=== PATIENT | male | born 1965 | race Caucasian/White ===

== ENCOUNTER 2020-08-23 07:07 | Outpatient (REF) | payer OTHER, SELFPAY ==
[2020-08-23 07:54] LABS: Hematocrit 42.6 % (42-52); Hemoglobin 14.5 g/dl (14.0-18.0); Mean Corpuscular Hemoglobin 32.7 pg (27.0-33.0); Mean Corpuscular Volume 95.9 fL (80-98); Mean Platelet Volume 9.6 fL (9.4-12.4); Platelet Count 339 X10*3/uL (160-400); Red Blood Count 4.44 X10*6/uL (4.60-5.80); White Blood Count 7.7 X10*3/uL (4.8-10.8)
[2020-08-23 08:21] LABS: Alanine Aminotransferase 25 U/L (0-40); Albumin Level 4.5 g/dL (3.5-5.0); Alkaline Phosphatase 50 U/L (39-117); Anion Gap 10 (12-20); Aspartate Amino Transferase 20 U/L (5-37); Bilirubin Total 0.8 mg/dL (0.0-1.0); Blood Urea Nitrogen 10 mg/dL (9-16); Calcium 9.4 mg/dL (8.4-10.2); Carbon Dioxide 29 mmol/L (22-29); Chloride 100 mmol/L (96-108); Cholesterol 190 mg/dL; Estimated Glomerular Filt Rate > 60; Glucose Random 101 mg/dL (60-115); HDL Cholesterol 77 mg/dL; LDL Cholesterol Calculated 102 mg/dl; Potassium 4.3 mmol/l (3.3-5.1); Sodium 135 mmol/L (135-145); Total Protein 7.1 g/dL (6.5-8.0); Triglycerides 55 mg/dL
[2020-08-23 08:44] LABS: Prostate Specific Antigen 0.73 ng/mL (<0.05-4.0)
[2020-08-23 09:25] LABS: Free T4 (Free Thyroxine) 1.03 ng/dL (0.71-1.85)
== END 2020-08-23 07:08 | disposition home or self-care (01) ==
LOC: HO.LAB 07:07
PROVIDERS: Visit Provider Internal Medicine
DX: Z00.01 Encounter for general adult medical examination with abnormal findings (principal); Z12.5 Encounter for screening for malignant neoplasm of prostate; I10 Essential (primary) hypertension; E87.2 Acidosis; M53.83 Other specified dorsopathies, cervicothoracic region
CPT/HCPCS: 36415; 80053; 80061; 82550; 84153; 84439; 84443; 85027

== ENCOUNTER 2020-09-12 07:44 | Outpatient (REF) | payer OTHER, SELFPAY ==
[2020-09-12 09:11] LABS: COVID-19 Test Negative (Negative)
== END 2020-09-12 07:45 | disposition home or self-care (01) ==
LOC: HO.EMPCOV 07:44
PROVIDERS: Visit Provider Internal Medicine
DX: Z20.828 Contact with and (suspected) exposure to other viral communicable diseases (principal)
CPT/HCPCS: 87635; C9803

== ENCOUNTER → 2020-12-05 13:23 | Outpatient (BNVA) | payer OTHER, SELFPAY | PROVIDERS: Visit Provider Internal Medicine | DX: Z13.89 Encounter for screening for other disorder (principal) | CPT/HCPCS: 99201 ==

== ENCOUNTER 2021-08-31 06:28 | Outpatient (REF) | payer OTHER, SELFPAY ==
[2021-08-31 06:35] LABS: MANUAL DIFF FLAG NO
[2021-08-31 07:44] LABS: Basophils Percent Auto 0.5 % (0-2); Eosinophils Absolute Auto 0.1 X10*3/uL (0.0-0.4); Eosinophils Percent Auto 0.8 % (0-4); Hematocrit 42.2 % (42.0-52.0); Hemoglobin 14.6 g/dl (14.0-18.0); Imm Gran Abs Auto 0.05 X10*3/uL (0.00-0.03); Imm Gran Pct Auto 0.6 % (0.0-0.4); Lymphocytes Absolute Auto 1.4 X10*3/uL (1.2-4.9); Lymphocytes Percent Auto 18.5 % (20-40); Mean Corpuscular HGB Conc 34.6 g/dl (31.0-36.0); Mean Corpuscular Hemoglobin 32.7 pg (27.0-33.0); Mean Corpuscular Volume 94.4 fL (80.0-98.0); Mean Platelet Volume 9.6 fL (9.4-12.4); Monocytes Absolute Auto 0.7 X10*3/uL (0.1-1.2); Monocytes Percent Auto 8.7 % (2-11); Neutrophils Absolute Auto 5.5 x10*3/uL (2.0-8.3); Neutrophils Percent Auto 70.9 % (45-73); Platelet Count 324 X10*3/uL (160-400); Red Blood Count 4.47 X10*6/uL (4.60-5.80); Red Cell Distribution Width 12.1 % (11.0-16.0); White Blood Count 7.7 X10*3/uL (4.8-10.8)
[2021-08-31 08:04] LABS: Creatinine Urine 35.46 mg/dL; Microalbumin Urine < 5.0 mg/L
[2021-08-31 08:12] LABS: Alanine Aminotransferase 31 U/L (0-40); Albumin Level 4.5 g/dL (3.5-5.0); Alkaline Phosphatase 49 U/L (39-117); Anion Gap 13 (12-20); Aspartate Amino Transferase 23 U/L (5-37); Blood Urea Nitrogen 11 mg/dL (9-16); Calcium 9.5 mg/dL (8.4-10.2); Carbon Dioxide 25 mmol/L (22-29); Chloride 100 mmol/L (96-108); Cholesterol 204 mg/dL; Estimated Glomerular Filt Rate > 60; Glucose Random 98 mg/dL (60-115); HDL Cholesterol 69 mg/dL; LDL Cholesterol Calculated 120 mg/dl; Potassium 4.3 mmol/L (3.3-5.1); Sodium 134 mmol/L (135-145); Total Protein 7.2 g/dL (6.5-8.0); Triglycerides 78 mg/dL
[2021-08-31 08:49] LABS: Prostate Specific Antigen 2.09 ng/mL (<0.05-4.0)
== END 2021-08-31 06:29 | disposition home or self-care (01) ==
LOC: HO.LAB 06:28
PROVIDERS: PCP Internal Medicine; Visit Provider Internal Medicine
DX: Z00.00 Encounter for general adult medical examination without abnormal findings (principal); Z12.5 Encounter for screening for malignant neoplasm of prostate; I10 Essential (primary) hypertension; E78.5 Hyperlipidemia, unspecified
CPT/HCPCS: 36415; 80053; 80061; 82043; 84153; 85025

== ENCOUNTER 2022-05-04 10:12 | Outpatient (REF) | payer OTHER, SELFPAY ==
--- NOTE | ~2022-05-04 | XR_ITS ---
EXAMINATION: XR HAND, LEFT CLINICAL INFORMATION: Pain COMPARISON: None TECHNIQUE: Four views of the left hand. FINDINGS: Left hand: There is mild lateral subluxation of PIP joint fourth digit. There is mild soft tissue swelling. It needs to be used. Rest of the PIP and DIP joints of all digits are normal. The MCP and intercarpal and carpometacarpal joints normal as well. No acute fracture seen. XR/XR hand LT min 3V IMPRESSION: Lateral subluxation PIP joint fourth digit with mild soft tissue swelling. It needs to be reduced.
== END 2022-05-04 10:13 | disposition home or self-care (01) ==
LOC: HO.HOSX 10:12
PROVIDERS: Visit Provider Orthopaedic Surgery
DX: M18.12 Unilateral primary osteoarthritis of first carpometacarpal joint, left hand (principal); S63.275A Dislocation of unspecified interphalangeal joint of left ring finger, initial encounter
CPT/HCPCS: 20600; 73130; J1020

== ENCOUNTER 2022-05-29 11:00 | Outpatient (RCR) | payer OTHER, SELFPAY ==
--- NOTE | 2022-07-02 08:50 | MHC.OT.DC ---
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 Recommended pt to con't OT to dec jt effusion and digit locking progressing to an Oval 8 PIP hyperext block. Pt cx all scheduled appt Electronically Signed By: Cheri Yadav OT CHT CLT Reviewed/agree with student documentation: Therapist: Please Sign and return to therapist, thank you for your referral.
== END 2022-07-02 08:50 | disposition home or self-care (01) ==
LOC: HO.OT 11:00
PROVIDERS: PCP Internal Medicine; Visit Provider Orthopaedic Surgery
DX: S63.275A Dislocation of unspecified interphalangeal joint of left ring finger, initial encounter (principal)
CPT/HCPCS: 97110; 97165; 97760

== ENCOUNTER 2022-09-04 06:32 | Outpatient (REF) | payer OTHER, SELFPAY ==
[2022-09-04 06:42] LABS: MANUAL DIFF FLAG NO
[2022-09-04 07:28] LABS: Basophils Percent Auto 0.4 % (0-2); Eosinophils Absolute Auto 0.1 X10*3/uL (0.0-0.4); Eosinophils Percent Auto 1.3 % (0-4); Hematocrit 44.4 % (42.0-52.0); Hemoglobin 15.1 g/dl (14.0-18.0); Imm Gran Abs Auto 0.06 X10*3/uL (0.00-0.03); Imm Gran Pct Auto 0.9 % (0.0-0.4); Lymphocytes Absolute Auto 1.4 X10*3/uL (1.2-4.9); Lymphocytes Percent Auto 20.5 % (20-40); Mean Corpuscular Hemoglobin 32.5 pg (27.0-33.0); Mean Corpuscular Volume 95.5 fL (80.0-98.0); Monocytes Absolute Auto 0.6 X10*3/uL (0.1-1.2); Monocytes Percent Auto 8.1 % (2-11); Neutrophils Absolute Auto 4.8 x10*3/uL (2.0-8.3); Neutrophils Percent Auto 68.8 % (45-73); Platelet Count 323 X10*3/uL (160-400); Red Blood Count 4.65 X10*6/uL (4.60-5.80)
[2022-09-04 08:01] LABS: Creatinine Urine 77.38 mg/dL
[2022-09-04 08:22] LABS: Alanine Aminotransferase 26 U/L (0-40); Albumin Level 4.5 g/dL (3.5-5.0); Alkaline Phosphatase 49 U/L (39-117); Anion Gap 13 (12-20); Aspartate Amino Transferase 19 U/L (5-37); Bilirubin Total 0.6 mg/dL (0.0-1.0); Blood Urea Nitrogen 13 mg/dL (9-16); Calcium 9.6 mg/dL (8.4-10.2); Carbon Dioxide 25 mmol/L (22-29); Chloride 102 mmol/L (96-108); Cholesterol 203 mg/dL; Estimated Glomerular Filt Rate > 60; Glucose Random 110 mg/dL (60-115); HDL Cholesterol 64 mg/dL; LDL Cholesterol Calculated 118 mg/dl; Potassium 4.1 mmol/L (3.3-5.1); Prostate Specific Antigen 1.17 ng/mL (<0.05-4.0); Sodium 136 mmol/L (135-145); Total Protein 7.3 g/dL (6.5-8.0); Triglycerides 108 mg/dL
== END 2022-09-04 06:33 | disposition home or self-care (01) ==
LOC: HO.LAB 06:32
PROVIDERS: PCP Internal Medicine; Visit Provider Internal Medicine
DX: Z00.00 Encounter for general adult medical examination without abnormal findings (principal); Z12.5 Encounter for screening for malignant neoplasm of prostate; I10 Essential (primary) hypertension; E78.2 Mixed hyperlipidemia
CPT/HCPCS: 36415; 80053; 80061; 82043; 84153; 85025

== ENCOUNTER → 2022-10-24 11:25 | Outpatient (BNVA) | payer OTHER, SELFPAY | PROVIDERS: PCP Internal Medicine; Visit Provider Orthopaedic Surgery | DX: M18.12 Unilateral primary osteoarthritis of first carpometacarpal joint, left hand (principal); S63.275A Dislocation of unspecified interphalangeal joint of left ring finger, initial encounter | CPT/HCPCS: 20600; J1020 ==

== ENCOUNTER → 2023-01-23 10:39 | Outpatient (BNVA) | payer OTHER, SELFPAY | PROVIDERS: PCP Internal Medicine; Visit Provider Orthopaedic Surgery | DX: M18.12 Unilateral primary osteoarthritis of first carpometacarpal joint, left hand (principal); S63.27 Dislocation of unspecified interphalangeal joint of finger | CPT/HCPCS: 20600; J1020 ==

== ENCOUNTER 2023-02-25 11:41 | Outpatient (REF) | payer OTHER, SELFPAY ==
[2023-02-25 12:08] LABS: Hematocrit 43.3 % (42.0-52.0); Hemoglobin 15.4 g/dl (14.0-18.0); Mean Corpuscular HGB Conc 35.6 g/dl (31.0-36.0); Mean Corpuscular Hemoglobin 33.9 pg (27.0-33.0); Mean Corpuscular Volume 95.4 fL (80.0-98.0); Mean Platelet Volume 9.7 fL (9.4-12.4); Platelet Count 317 X10*3/uL (160-400); Red Blood Count 4.54 X10*6/uL (4.60-5.80); Red Cell Distribution Width 12.1 % (11.0-16.0); White Blood Count 9.2 X10*3/uL (4.8-10.8)
[2023-02-25 12:44] LABS: Alanine Aminotransferase 21 U/L (0-40); Albumin Level 4.6 g/dL (3.5-5.0); Alkaline Phosphatase 56 U/L (39-117); Anion Gap 14 (12-20); Aspartate Amino Transferase 16 U/L (5-37); Bilirubin Total 0.7 mg/dL (0.0-1.0); Blood Urea Nitrogen 9 mg/dL (9-16); Calcium 9.8 mg/dL (8.4-10.2); Carbon Dioxide 27 mmol/L (22-29); Chloride 98 mmol/L (96-108); Estimated Glomerular Filt Rate > 60; Glucose Random 175 mg/dL (60-115); Potassium 4.4 mmol/L (3.3-5.1); Sodium 135 mmol/L (135-145); Total Protein 7.4 g/dL (6.5-8.0)
[2023-02-25 12:54] LABS: TSH reflex Free T4 1.08 uIU/mL (0.32-4.0)
[2023-02-26 09:53] LABS: EBV-VCA IgM Ab <36.00 U/mL
[2023-02-26 12:08] LABS: Lyme Abs Screen <0.90 index
== END 2023-02-25 11:42 | disposition home or self-care (01) ==
LOC: HO.LAB 11:41
PROVIDERS: PCP Internal Medicine; Visit Provider Internal Medicine
DX: R53.83 Other fatigue (principal)
CPT/HCPCS: 36415; 80053; 84443; 85027; 86617; 86618; 86664; 86665

== ENCOUNTER 2023-06-11 12:26 | Outpatient (REF) | payer OTHER, SELFPAY ==
--- NOTE | ~2023-06-11 | FL_ITS ---
EXAMINATION: XR FLUOROSCOPY WITH IMAGES CLINICAL INFORMATION: Unilateral primary osteoarthritis of first carpometacarpal joint. COMPARISON: Radiographs of left hand from 05/04/2022 TECHNIQUE: Fluoroscopy Supervised by: Dr. Sheree Dove. Fluoroscopy Time: Information is not provided. Cumulative Dose: Information not provided. DAP: Information not provided. Images: 5 FL/FL guidance in treatment room FINDINGS AND IMPRESSION: Chronic severe osteoarthritis of the first carpometacarpal joint with chronic radial subluxation of the 1st metacarpal. No new abnormalities compared to 05/04/2022.
== END 2023-06-11 12:27 | disposition home or self-care (01) ==
LOC: HO.HOSX 12:26
PROVIDERS: PCP Internal Medicine; Visit Provider Orthopaedic Surgery
DX: Z13.89 Encounter for screening for other disorder (principal)

== ENCOUNTER 2023-06-11 12:26 | Outpatient (AMB) | payer OTHER, SELFPAY ==
--- NOTE | 2023-06-11 12:46 | A.OFFVIS_ITS ---
Intake Intake Visit Reasons: OV-s/p LT basal injection 10/24/22 Intake Note: Jeremias 57 yr old right hand dominant male presents today for his s/p LT basal injection 01/23/23. States injection is not helping and is aware he may not have another until June. Patient would like to discuss other treatment options. Also states his Left ring finger PIP joint instability has not done any home exercises. 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 His last injection was on 01/23/23, which he says gave him no relief. He is aware he is slightly early for a repeat injection and would like to discuss treatment options He complains of pain at the base of his thumb with activity, worse with pinching and gripping activities. He says he cannot sleep properly at night and this wakes him up. At this point he is interested in talking about operative intervention. He also complains of painful locking of his left ring finger as well. Again he has some mild hyper extension at the left ring finger PIP joint which then makes it hard for him to actively flex the PIP joint. He attended two sessions of OT hand therapy in the past. I again discussed the use of silver ring splints for him to wear, as he has good active flexion of the joint if the PIP joint is not allowed into hyper extension.. [facility] Medical History GERD (gastroesophageal reflux disease) High blood pressure High cholesterol Social History Current occupational status: employed Current occupation: storage room/maintenance/ rt hand Review of Systems Const All systems reviewed & are unremarkable except as noted in HPI and below Physical Exam Const General: no acute distress and alert Orientation/consciousness: patient oriented x3 Neuro General: patient oriented x3 Extrem Other: Evaluation of Left Upper Extremity: Neuro: Median, ulnar, radial nerves motor and sensory intact. No intrinsic or thenar wasting. Good finger cross. Vascular: Cap refill brisk. ROM: He can bring his fingers close to a fist and back into full extension. The only exception to this is the left ring finger. He appears to have a bit of a swan-neck deformity and has difficulty actively bring the PIP joint from a position of slight hyper extension into flexion. However, once the PIP joint is brought into slight flexion he is then able to actively bring the finger closed to a fist. Visible and palpable locking and catching of the ring finger Tender over the a1 chad of the ring finger I was able to palpate the nodule getting stuck beneath the a1 chad He also has a positive shoulder sign on the left and positive CMC grind. He is most tender to palpation about the basal joint of the thumb. Radiographs:? Multiple views of the left hand were taken under fluoroscopy today in clinic. They show left basal joint osteoarthritis with near complete loss of the joint space, subchondral?sclerosis and significant osteophyte formation. The scaphotrapezial joint and trapezial trapezoidal joint appear to be intact and in good condition. Hand radiographs from 05/04/2022 were also reviewed today. He also appears to have had an old dislocation of the left ring finger PIP joint which is still in a subluxated position with partial ulnar subluxation and deviation on the PA and oblique views.. Psych Appearance: grossly normal Affect: normal affect Attitude: cooperative Assessment & Plan Assessment & Plan (1) Arthritis of carpometacarpal (CMC) joint of left thumb: Code(s): M18.12 - Unilateral primary osteoarthritis of first carpometacarpal joint, left hand (2) Dislocation of interphalangeal joint of left ring finger: Code(s): S63.275A - Dislocation of unspecified interphalangeal joint of left ring finger, initial encounter (3) Trigger finger, left ring finger: Code(s): M65.342 - Trigger finger, left ring finger Plan Assessment and plan: 1. Left basal joint osteoarthritis, S/P injection Date of Injections: 01/23/23, 10/24/22, 05/04/22, with good relief. Most recent injection gave no relief With near complete loss of the joint space, subluxation and osteophyte formation He is evidently had numerous injections with an outside provider. 2. Left ring finger trigger finger I educated him about these conditions I discussed operative and non-operative treatment options The patient would like to proceed with surgery The risks and benefits of operative treatment were discussed with the patient and the patient wishes to proceed with surgery. These risks include, but are not limited to risk of damage to blood vessels, nerves, tendons, infection, recurrence, incomplete relief of preoperative symptoms, persistent pain, possible need for further surgery and the risks associated with regional blocks and anesthesia. The plan is to take the patient to the operating room sometime in the next few weeks for the following procedures: 1. Left basal joint arthroplasty LRTI with slip of APL tendon, under general 2. Left ring finger trigger release, under general All of the preoperative paperwork including the consent was filled out today. All the patient's questions were answered. The patient understands that they will be contacted by our cosmetics presser soon to schedule this procedure He denies Diabetes, blood thinners, asthma, heart, lung, kidney issues 3. 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 He will let me know if he wants to try this. He will continue to work on ROM exercises at home Scribed for Cynthia Dove MD by Mark Linda, medical assistant instructor, on 06/11/23 at 1:30 PM, EST. Orders: Orders FL guidance in treatment room Today M18.12 - Unilateral primary osteoarthritis of first carpometacarpal joint, left hand Coding Level of Care Code Est Pt Level 4 (32327) Diagnoses Arthritis of carpometacarpal (CMC) joint of left thumb M18.12 Dislocation of interphalangeal joint of left ring finger S63.275A Trigger finger, left ring finger M65.342
== END 2023-06-11 13:58 | disposition home or self-care (01) ==
PROVIDERS: PCP Internal Medicine; Visit Provider Orthopaedic Surgery
DX: M18.12 Unilateral primary osteoarthritis of first carpometacarpal joint, left hand (principal); S63.275A Dislocation of unspecified interphalangeal joint of left ring finger, initial encounter; M65.342 Trigger finger, left ring finger
CPT/HCPCS: 99214

== ENCOUNTER 2023-06-24 06:52 | Day surgery (SDC) | payer OTHER, SELFPAY ==
[2023-06-20 13:02] VITALS: BMI 25.1
--- NOTE | 2023-06-21 10:02 | HO.ANESPROP2 ---
Documented by User: Cora Ortiz NP 06/21/23 10:03 HPI - Anesthesia Eval Consult details Narrative: 57yo M for Left Basil Joint Arthroplasty ligament reconstruction tendon interposition w/slip of APL tendon, Left Ring Finger Trigger Release PMFSH Active Problems Active Problems: All Active Problems (Updated 06/11/23 @ 13:30 by Mark Linda) Trigger finger, left ring finger (Acute) Dislocation of interphalangeal joint of left ring finger (Acute) Arthritis of carpometacarpal (CMC) joint of left thumb (Acute) Past Medical History Medical History (Updated 06/11/23 @ 13:30 by Mark Linda) GERD (gastroesophageal reflux disease) High cholesterol High blood pressure Surgical History Surgical History (Updated 06/20/23 @ 13:01 by Lina Brar, NI) Hx of colonoscopy Hx of inguinal hernia repair S/P left knee arthroscopy Hx of appendectomy Social History Social History (Updated 06/20/23 @ 13:01 by Lina Brar, NI) Are you a primary career coordinator to a significant other at home: No Do you presently have visiting nurse or other home services: No Patient Tobacco Use Status: Never used Tobacco Current occupational status: employed Current occupation: storage room/maintenance/ rt hand Meds Allergies Allergy/AdvReac Type Severity Reaction Status Date / Time erythromycin base Allergy Severe Hives, rash Verified 06/20/23 13:02 Home Medications Medication Instructions Recorded Confirmed Last Taken Type amlodipine 10 mg-atorvastatin 20 1 tab PO DAILY 05/04/22 06/20/23 06/24/23 History mg tablet lisinopril 10 1 tab PO DAILY 05/04/22 06/20/23 Unknown History mg-hydrochlorothiazide 12.5 mg tablet omeprazole 20 mg capsule,delayed 20 mg PO DAILY 05/04/22 06/20/23 06/24/23 History release Exam Exam Date and Time: June 21, 2023 1002 Height,Weight and Vital Signs: Height 5 ft 7 in Weight 72.575 kg Pertinent Lab Results Pertinent Lab Results: Laboratory Tests 02/25/23 11:56 WBC 9.2 Hgb 15.4 Hct 43.3 Plt Count 317 Sodium 135 Potassium 4.4 Chloride 98 Carbon Dioxide 27 BUN 9 Creatinine 0.86 Assessment and Plan Assessment Anesthesia Assessment: Chart Reviewed Documented by User: Mustapha Anders MD 06/24/23 18:22 HPI - Anesthesia Eval Consult details Narrative: 57yo M for Left Basil Joint Arthroplasty ligament reconstruction tendon interposition w/slip of APL tendon, Left Ring Finger Trigger Release Denies any Chest pain , shortness of breath . functional status greater than 4 [facility]S [facility] Past Medical History Medical History (Updated 06/11/23 @ 13:30 by Mark Linda) GERD (gastroesophageal reflux disease) High cholesterol High blood pressure Functional capacity: independent ambulation Family History Family history of problems with anesthesia: No Surgical History Surgical History (Updated 06/20/23 @ 13:01 by Lina Brar RN) Hx of colonoscopy Hx of inguinal hernia repair S/P left knee arthroscopy Hx of appendectomy History of Problems with Anesthesia: No Social History Social History (Updated 06/20/23 @ 13:01 by Lina Brar RN) Are you a primary career coordinator to a significant other at home: No Do you presently have visiting nurse or other home services: No Patient Tobacco Use Status: Never used Tobacco Current occupational status: employed Current occupation: storage room/maintenance/ rt hand Meds Allergies Allergy/AdvReac Type Severity Reaction Status Date / Time erythromycin base Allergy Severe Hives, rash Verified 06/20/23 13:02 Home Medications Medication Instructions Recorded Confirmed Last Taken Type amlodipine 10 mg-atorvastatin 20 1 tab PO DAILY 05/04/22 06/20/23 06/24/23 History mg tablet lisinopril 10 1 tab PO DAILY 05/04/22 06/20/23 Unknown History mg-hydrochlorothiazide 12.5 mg tablet omeprazole 20 mg capsule,delayed 20 mg PO DAILY 05/04/22 06/20/23 06/24/23 History release Exam Airway Mallampati Class: III Loose/Missing/Broken Teeth: Yes Assessment and Plan Assessment Anesthesia Assessment: Anesthesia Plan Discussed Final Anesthetic Review Family History of Problems with Anesthesia: No History of Problems with Anesthesia: No NPO: Yes ASA Class: III Final Preanesthetic Review: Meds/Allgs Chart Reviewed, Consent Obtained/Reviewed and Anes Risks/Benef Reviewed Patient Risk: Intermediate Procedure Risk: Intermediate Anesthetic Plan Anesthetic Plan: GA, Regional Block and Agree w/ Assess. and Plan Disposition: Standard PACU
--- NOTE | ~2023-06-24 | FL_ITS ---
EXAMINATION: XR FLUOROSCOPY WITH IMAGES CLINICAL INFORMATION: Basal joint arthroplasty ligament reconstruction. Left basal joint arthroplasty. COMPARISON: None available. TECHNIQUE: Fluoroscopy Supervised By: Dr. Cynthia Dove. Fluoroscopy Time: 10.44 seconds. Cumulative Dose: 0.2743 mGy. DAP: 0.0166 Gycm2. Images: 6. FINDINGS: Fluoroscopy guidance provided for osteotomies and fusion of the left first SENIOR CARE joint. Final images 2 K wires or pins across the first SENIOR CARE joint. FL/FL guidance in OR IMPRESSION: Fluoroscopy guidance for osteotomy and fusion of the first SENIOR CARE joint.
[2023-06-24 07:08] VITALS: BP 136/74; PULSE 53; RESP 16; TEMP 36.9; O2SAT 98
[2023-06-24] MEDS: Lactated Ringers 1,000 ML 100 ML IVCONT (07:19)
--- NOTE | 2023-06-24 07:59 | P.OP_ITS ---
Operative Note Operative Note Date of Service: 06/24/23 Narrative: Operative Note Narrative: Preop diagnosis: 1. left basal joint osteoarthritis 2. Left ring finger trigger finger Postop diagnosis: Same Procedure: 1. left basal joint arthroplasty with irving trapezii ectomy and ligament reconstruction tendon interposition with a slip of APL tendon 2. Left ring finger trigger release Surgeon: Cynthia Dove MD Anesthesia: General Anesthesia plus regional block Findings: no locking or catching with passive range of motion of the left ring finger after A1 chad release. Left basal joint arthritis, and a significantly sized osteophyte measuring approximately 7 mm in diameter was removed. Implants: 0.045 K-wires x2 Tourniquet time: 51 minutes EBL: 5.0 ml Specimen: osteophyte, and bone from basal joint. Drains: None Complications: None Disposition: Brought to the recovery room in stable condition Plan: Follow-up in 10-14 days for wound check, suture removal and to postop radiographs Place into a short-arm thumb spica cast. Anticipate K-wire removal at 4 weeks postop with same-day appointment for OT hand therapy for a custom thermoplastic hand based thumb spica splint and hand therapy Indications: The patient is 57 years old with left basal joint osteoarthritis. The risks and benefits of operative treatment, including but not limited to risk of damage to blood vessels, nerves, tendons, infection, recurrence, persistent pain or numbness, incomplete resolution of preoperative symptoms, or need for further surgery were discussed with the patient and they wished to proceed with surgery. Procedure: Once consent was obtained patient was brought back to the operating suite and placed in the operating table in a supine position. A regional block was performed by the anesthesia team. Perioperative antibiotics and anesthesia were administered by the anesthesia team. A tourniquet was applied to the proximal aspect of the left upper extremity and the limb was prepped and draped in a standard surgical fashion. The limb was elevated exsanguinated with Esmarch bandage and the tourniquet inflated to 250 mm of mercury for a total tourniquet time of 51 minutes. A 1.5 cm oblique incision was made centered over the A1 chad of the left ring finger . The incision was made through the skin to the subcutaneous tissues using a #15 blade. Careful dissection was made down to the level of the A1 pu lley using tenotomy scissors, with care being taken to protect the nearby neurovascular structures. A longitudinal incision was made in the A1 chad 1st using a #15 blade, then using tenotomy scissors under direct visualization. The A1 chad was noted to be thickened. Following our A1 chad release, we no longer saw any locking or catching of the digit with flexion and extension. A 4 cm longitudinal incision was made over the dorsal aspect of the basal joint of the left thumb extending proximally over the 1st dorsal compartment. The incision was made through the skin to the subcutaneous tissues using a 15. Blade. I dissected down to the level of the abductor pollicis longus and extensor problems this brevis tendons with care being taken to protect the branches of the superficial radial nerve. The basal joint was entered through the interval between the APL and EPB tendons, and the base of the 1st metacarpal and the distal aspect of the trapezium were exposed. Two baby Julio retractors were placed around the base of the 1st metacarpal and a bone saw was used to make a transverse cut through the base of the 1st metacarpal removing sliver of bone. The distal aspect of the trapezium was then similarly mobilized, 2 baby Julio retractors placed, and the distal half of the trapezium removed after a transverse cut was made using a small bone saw and a rongeur. The FCR tendon was seen passing through the floor of the interval. At this point my attention was turned to the 1st dorsal compartment. It was exposed over the radial styloid. A slip of the abductor pollicis longus tendon was selected and cut proximally and withdrawn back to the interval and its attachment at the base of the 1st metacarpal. It was then secured to the base of the interval and the FCR tendon using some 3-0 Ethibond suture. An anchovy was then created from the remaining slip of APL tendon and placed into the interval. It was secured using 3-0 Ethibond suture material. Two 0.045 K-wires were then placed from distal to proximal across the interval maintaining the space in the interval. Once satisfied with their position on fluoroscopic images they were cut, bent and had pin caps applied. At this point the wound was again irrigated with normal saline. The interval was closed using 3-0 Ethibond and 4-0 Vicryl suture. The tourniquet was then deflated and hemostasis obtained with a brief period of local pressure and bipolar electrocautery. The wound was again copiously irrigated with normal saline. The subcutaneous layer was closed with 4-0 Vicryl suture, and the skin edges were reapproximated with 5-0 Prolene suture. The wound was infiltrated with some 1% lidocaine with epinephrine for postop pain control and a sterile dressing and thumb spica splint were applied. The patient appears to have tolerated the procedure well and with no complications. All digits were well vascularized at the conclusion of the case.
--- NOTE | 2023-06-24 10:14 | MHC.SHP ---
Pre-Procedural Eval Section A Date of Service: 06/24/23 The patient is an INPATIENT: No Changes since office visit: No Cold of Flu in the past 2 weeks, No New Medical Problems, No Changes in Medication and No Patient answered all questions The History & Physical has been completed within 30 days and I have reviewed it.: Yes Section B Chief Complaint: Unilateral primary osteoarthritis of first carpome Allergies: Allergies Allergy/AdvReac Type Severity Reaction Status Date / Time erythromycin base Allergy Severe Hives, rash Verified 06/20/23 13:02 Plan I have reviewed the history and physical and performed a pertinent physical examination on my patient. No changes have occurred unless specified. Time Spent With Patient Time: Total time managing care of this patient today ____ minutes.
[2023-06-24 12:24] VITALS: BP 138/84; PULSE 55; RESP 16; TEMP 36.4; O2SAT 98
[2023-06-24 12:29] VITALS: BP 140/84; PULSE 48; RESP 14; O2SAT 98
[2023-06-24 12:34] VITALS: BP 151/80; PULSE 70; RESP 16; O2SAT 98
[2023-06-24 12:39] VITALS: BP 138/83; PULSE 68; RESP 14; O2SAT 99
[2023-06-24 12:54] VITALS: BP 151/83; PULSE 52; RESP 16; TEMP 36.3; O2SAT 99
== END 2023-06-24 13:35 | disposition home or self-care (01) ==
PROVIDERS: PCP Internal Medicine; Visit Provider Orthopaedic Surgery
PROC: (CPT 25447; principal; 2023-06-24 08:40)
PROC: (CPT 26055; 2023-06-24 08:40)
DX: M18.12 Unilateral primary osteoarthritis of first carpometacarpal joint, left hand (principal); M65.342 Trigger finger, left ring finger; M79.645 Pain in left finger(s); I10 Essential (primary) hypertension; E78.00 Pure hypercholesterolemia, unspecified; Z88.1 Allergy status to other antibiotic agents
CPT/HCPCS: 25447; 26055; 88304; 88311; J0690; J1100; J2250; J2405; J2795; J3010

== ENCOUNTER → 2023-06-24 06:52 | Outpatient (BNV) | payer OTHER, SELFPAY | PROVIDERS: PCP Internal Medicine; Visit Provider Orthopaedic Surgery | DX: M65.342 Trigger finger, left ring finger (principal); M18.12 Unilateral primary osteoarthritis of first carpometacarpal joint, left hand | CPT/HCPCS: 25447; 26055 ==

== ENCOUNTER 2023-07-09 11:56 | Outpatient (REF) | payer OTHER, SELFPAY ==
--- NOTE | ~2023-07-09 | XR_ITS ---
EXAMINATION: XR HAND, LEFT CLINICAL INFORMATION: Hand pain COMPARISON: Hand radiographs 05/02/2022 TECHNIQUE: PA, lateral, and oblique views of the left hand. FINDINGS: There are postsurgical changes of the first carpometacarpal joint with percutaneous fixation pins fixating the first carpometacarpal joint. No acute fracture or dislocation. Persistent mild ulnar subluxation of the fourth middle phalanx and similar degenerative changes of the interphalangeal joints. Atherosclerotic vascular calcification. Similar punctate calcification in the TFCC cartilage. No acute fracture or dislocation. XR/XR hand LT min 3V IMPRESSION: 1. There are postsurgical changes of the first carpometacarpal joint with percutaneous fixation pins fixating the first carpometacarpal joint. 2. Persistent mild ulnar subluxation of the fourth middle phalanx and similar degenerative changes of the interphalangeal joints.
== END 2023-07-09 11:57 | disposition home or self-care (01) ==
LOC: HO.HOSX 11:56
PROVIDERS: Visit Provider Orthopaedic Surgery
DX: S63.27 Dislocation of unspecified interphalangeal joint of finger (principal); M18.12 Unilateral primary osteoarthritis of first carpometacarpal joint, left hand; M65.342 Trigger finger, left ring finger
CPT/HCPCS: 73130

== ENCOUNTER 2023-07-09 13:11 | Outpatient (AMB) | payer OTHER, SELFPAY ==
--- NOTE | 2023-07-09 12:00 | MHC.OFFVIS ---
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 States he feels like the pins are jabbing him and is uncomfortable. Xrays updated in office. 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 He says he feels like the pins are jabbing into his skin causing him pain He no longer has any locking or catching He says he is unable to take NSAIDs. He was taking them following surgery, but he says this morning he experienced rectal bleeding. He says he had a hemmorhoid removed in 2014 and when he takes NSAIDs since his surgery he begins to experience bleeding. He says he has a GI doctor that he will speak to about this [facility] Medical History (Updated 06/11/23 @ 13:30 by Mark Linda) GERD (gastroesophageal reflux disease) High cholesterol High blood pressure Surgical History (Updated 06/20/23 @ 13:01 by Lina Brar RN) Hx of colonoscopy Hx of inguinal hernia repair S/P left knee arthroscopy Hx of appendectomy Social History Are you a primary home care giver to a significant other at home: No Do you presently have visiting nurse or other home services: No Patient Tobacco Use Status: Never used Tobacco Current occupational status: employed Current occupation: storage room/maintenance/ rt hand Review of Systems Const All systems reviewed & are unremarkable except as noted in HPI and below Physical Exam Const General: no acute distress and alert Orientation/consciousness: patient oriented x3 Neuro General: patient oriented x3 Extrem Other: The patient was alert oriented and in no acute distress The incisions are healing well with no erythema drainage or evidence of infection. Sutures removed and Steri-Strips applied Pin sites are also clean and dry with no evidence of infection The more ulnar early position pin looks like it migrated in a little deeper. I withdrew that a few mm to a more satisfactory position. No locking or catching when the ring finger is brought into a tight flexion and then brought back into extension. It should be noted that he still having difficulty with active flexion at the PIP joint when the PIP joint is brought into some hyper extension. Again is possible that he may need a procedure to correct this. Sensation is intact Cap refill is brisk Radiographs: 3 views of the left hand, with attention to the thumb, were taken and viewed by me today in clinic. They show that he is status post a irving trapezii ectomy and basal joint arthroplasty, with satisfactory position of all implants and preservation of the basal joint inter space. Psych Appearance: grossly normal Affect: normal affect Attitude: cooperative Assessment & Plan Assessment & Plan (1) Arthritis of carpometacarpal (CMC) joint of left thumb: Code(s): M18.12 - Unilateral primary osteoarthritis of first carpometacarpal joint, left hand (2) Dislocation of interphalangeal joint of left ring finger: Code(s): S63.275A - Dislocation of unspecified interphalangeal joint of left ring finger, initial encounter (3) Trigger finger, left ring finger: Code(s): M65.342 - Trigger finger, left ring finger Plan Assessment and plan: 1. Left basal joint osteoarthritis, S/P BJA with hemitrapeziectomy and LRTI DOS: 06/24/23 2. Left ring finger trigger finger, S/P release DOS: 06/24/23 The patient appears to be doing well post-operatively I educated him about the post-operative course He no longer has any locking or catching I explained the signs and symptoms of infection, if the patient develops any new or worsening erythema, drainage, pain, or warmth they should contact the clinic or attend the ED. He was placed in a short arm cast to be worn for the next 2 weeks I discussed activity modifications, he is to lift nothing heavier than a cellphone for the next several weeks He will perform gentle ROM exercises at home He should avoid any underwater activities at this time I ordered a course of OT hand therapy for a custom splint, this should be scheduled for the same day following his K-wire removal Of note, he experienced some rectal bleeding while taking NSAIDs post-operatively. He has stop taking the ibuprofen. I also recommend he speak with his GI concerning this as he has a hx of hemorrhoid removal in 2015. He is in agreement. He will follow up in 2 weeks for K-wire removal He should have an appointment with OT hand therapy for the same day following this appointment for a custom thermoplastic hand based thumb spica splint and hand therapy 3. 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 He will let me know if he wants to try this. It is possible that he may benefit from an operative procedure securing a slip of FDS proximally to prevent the PIP joint from full extension. He will continue to work on ROM exercises at home Scribed for Cynthia Dove MD by Mark Linda, medical customer service representative, on 07/09/23 at 2:40 PM, EST. Orders: Orders XR hand LT min 3V Today M79.642 - Pain in left hand Coding Level of Care Code Global (85986) Diagnoses Arthritis of carpometacarpal (CMC) joint of left thumb M18.12 Dislocation of interphalangeal joint of left ring finger S63.275A Trigger finger, left ring finger M65.342
== END 2023-07-09 15:20 | disposition home or self-care (01) ==
PROVIDERS: PCP Internal Medicine; Visit Provider Orthopaedic Surgery
DX: M18.12 Unilateral primary osteoarthritis of first carpometacarpal joint, left hand (principal); S63.275A Dislocation of unspecified interphalangeal joint of left ring finger, initial encounter; M65.342 Trigger finger, left ring finger
CPT/HCPCS: 99024

== ENCOUNTER 2023-07-23 10:30 | Outpatient (AMB) | payer OTHER, SELFPAY ==
--- NOTE | 2023-07-23 10:48 | MHC.OFFVIS ---
Intake Intake Visit Reasons: Lt RF Trigger Release, Lt Basal Arthro 06/24/23 Intake Note: Jeremias 58 yr old right hand dominant male, presents today for his P/O visit for his left ring finger Trigger Release & Left Basal Arthroplasty from DOS 06/24/23. Dressing removed in office and xrays updated . Patient has O.T appointment scheduled for tomorrow due to no availability for today. Cast removed in office. 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 He says he feels like the pins are jabbing into his skin causing him pain and he is ready to have them out. He says the pins are making him feel nauseous He says his OT appointment is for tomorrow (07/24/23) due to no availability following his appointment today. He denies getting his cast wet, and denies any symptoms of infection. [facility] Medical History (Updated 07/09/23 @ 14:50 by Cynthia Dove MD) GERD (gastroesophageal reflux disease) High cholesterol High blood pressure Surgical History (Updated 06/20/23 @ 13:01 by Lina Brar RN) Hx of colonoscopy Hx of inguinal hernia repair S/P left knee arthroscopy Hx of appendectomy Social History Are you a primary customer care assistant to a significant other at home: No Do you presently have visiting nurse or other home services: No Patient Tobacco Use Status: Never used Tobacco Current occupational status: employed Current occupation: storage room/maintenance/ rt hand Physical Exam Const General: no acute distress and alert Orientation/consciousness: patient oriented x3 Neuro General: patient oriented x3 Extrem Other: The patient was alert oriented and in no acute distress The incisions are healing well with no erythema drainage or evidence of infection. The inside of his cast was actually somewhat wet near where the pin sites were. Thinks it might be from being sweaty. Pin sites are clean and with no evidence of infection The more radial pin was loose and came right out K-wires removed today in clinic, which he tolerated well but he felt mildly nauseous following the removal of his K-wires No locking or catching when the ring finger is brought into a tight flexion and then brought back into extension. It should be noted that he still having difficulty with active flexion at the PIP joint when the PIP joint is brought into some hyper extension. Again is possible that he may need a procedure to correct this. Sensation is intact Cap refill is brisk Psych Appearance: grossly normal Affect: normal affect Attitude: cooperative Assessment & Plan Assessment & Plan (1) Arthritis of carpometacarpal (CMC) joint of left thumb: Code(s): M18.12 - Unilateral primary osteoarthritis of first carpometacarpal joint, left hand (2) Dislocation of interphalangeal joint of left ring finger: Code(s): S63.275A - Dislocation of unspecified interphalangeal joint of left ring finger, initial encounter (3) Trigger finger, left ring finger: Code(s): M65.342 - Trigger finger, left ring finger Plan Assessment and plan: 1. Left basal joint osteoarthritis, S/P BJA with hemitrapeziectomy and LRTI DOS: 06/24/23 2. Left ring finger trigger finger, S/P release DOS: 06/24/23 K-wire removed: 07/23/23, he felt lightheaded following the K-wire removal today in clinic The patient appears to be doing well post-operatively I educated him about the post-operative course He no longer has any locking or catching I explained the signs and symptoms of infection, if the patient develops any new or worsening erythema, drainage, pain, or warmth they should contact the clinic or attend the ED. Out of an abundance of caution he was placed on a 7 day course of PO Augmentin, as his cast was damp when removed. He does not recall his splint getting wet. He was placed in a new splint today to wear until his OT appointment tomorrow I discussed activity modifications, he is to lift nothing heavier than a cellphone for the next 2 weeks He will perform gentle ROM exercises at home He should avoid any underwater activities for the next 5 days He has his OT appointment scheduled for 07/24/23, tomorrow, due to no availability for appointments today. They will fit him for a custom thermal-molded splint to wear, and to work on ROM exercises Of note, he experienced some rectal bleeding while taking NSAIDs post-operatively. He has stop taking the ibuprofen and has not had any rectal bleeding since that time.. I also recommend he speak with his GI concerning this as he has a hx of hemorrhoid removal in 2014. He is in agreement. He will remain out of work until 08/14/23. When he returns to work he will return on light duty, wearing his custom thumb splint, and avoiding any pinching activities against his thumb. Anticipate return to full duty ~3 months P/O He will follow up next week with a PA for a wound check He will follow up with me in the 2nd week of September, and will discuss his RTW status at that appointment 3. 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 He will let me know if he wants to try this. It is possible that he may benefit from an operative procedure securing a slip of FDS proximally to prevent the PIP joint from full extension. He will continue to work on ROM exercises at home Scribed for Cynthia Dove MD by Mark Linda, medical doctor md/medical director, on 07/23/23 at 11:05 AM, EST. Medications: New amoxicillin-pot clavulanate 875-125 mg 1 tab PO Q12H 14 tabs 0RF Coding Level of Care Code Global (06142) Diagnoses Arthritis of carpometacarpal (CMC) joint of left thumb M18.12 Dislocation of interphalangeal joint of left ring finger S63.275A Trigger finger, left ring finger M65.342
== END 2023-07-23 11:19 | disposition home or self-care (01) ==
PROVIDERS: PCP Internal Medicine; Visit Provider Orthopaedic Surgery
DX: M18.12 Unilateral primary osteoarthritis of first carpometacarpal joint, left hand (principal); S63.275A Dislocation of unspecified interphalangeal joint of left ring finger, initial encounter; M65.342 Trigger finger, left ring finger
CPT/HCPCS: 99024

== ENCOUNTER → 2023-07-23 10:30 | Outpatient (BNVA) | payer OTHER, SELFPAY | PROVIDERS: PCP Internal Medicine; Visit Provider Orthopaedic Surgery ==

== ENCOUNTER 2023-07-31 13:28 | Outpatient (AMB) | payer OTHER, SELFPAY ==
--- NOTE | 2023-07-31 13:35 | A.OFFVIS_ITS ---
Intake Intake Visit Reasons: OV-Lt RF Trigger Release- Wound care check Intake Note: Jeremias wheatley 58 year old male presents today for a post operative wound check s/p left ring finger trigger release & left basal arthroplasty, DOS 06/24/23. Patient reports he is doing well, he has no concerns today. He would like to discuss return to work status. Allergies erythromycin base Allergy (Severe, Verified 07/31/23 13:46) Hives, rash HPI OV-Lt RF Trigger Release- Wound care check HPI Details 58-year-old male who returns to the [facility] today for a post-op left ring finger trigger release & left basal arthroplasty, 06/24/23. He states he has no pain but he does c/o occasional clicking in his finger. He is using coconut oil on his finger with benefits. He is doing well overall and has no concerns today. He is currently out of work and would like to discuss his work status. [facility] Medical History (Updated 07/31/23 @ 14:25 by Dacia Renner PA-C) GERD (gastroesophageal reflux disease) High cholesterol High blood pressure Surgical History (Updated 06/20/23 @ 13:01 by Lina Brar RN) Hx of colonoscopy Hx of inguinal hernia repair S/P left knee arthroscopy Hx of appendectomy Social History Are you a primary emergency care tech to a significant other at home: No Do you presently have visiting nurse or other home services: No Patient Tobacco Use Status: Never used Tobacco Current occupational status: employed Current occupation: storage room/maintenance/ rt hand Review of Systems Const All systems reviewed & are unremarkable except as noted in HPI and below Physical Exam Extrem Other: Left thumb and ring finger: Incision well healed. No erythema or swelling. He is able to make a full fist and extend all digits. The ring finger is lacking about 5 degrees of flexion. He has no catching or locking. NVI. Assessment & Plan Assessment & Plan (1) Arthritis of carpometacarpal (CMC) joint of left thumb: Code(s): M18.12 - Unilateral primary osteoarthritis of first carpometacarpal joint, left hand (2) Dislocation of interphalangeal joint of left ring finger: Code(s): S63.275A - Dislocation of unspecified interphalangeal joint of left ring finger, initial encounter Qualifiers: Encounter type: subsequent encounter Qualified Code(s): S63.275D - Dislocation of unspecified interphalangeal joint of left ring finger, subsequent encounter (3) Trigger finger, left ring finger: Code(s): M65.342 - Trigger finger, left ring finger Plan We discussed options in regards to going back to work. He would like to return to work on September 09 light duty which includes no lifting, pushing, pulling or carrying with the left hand. He does have an appointment on September [address] Dove for another evaluation for potential return to work full duty. In the meantime, he will continue to work with occupational therapy and see back sooner if needed. Patient Instructions: Scribed for Dacia Renner PA-C, by Marcus Gandhi medical staff assistant, on 07/31/2023 at 1:45 PM EST. I, Dacia Renner PA-C, have personally reviewed and agree with the information entered by the scribe. Coding Level of Care Code Global (75821) Diagnoses Arthritis of carpometacarpal (CMC) joint of left thumb M18.12 Dislocation of interphalangeal joint of left ring finger, subsequent encounter S63.275D Encounter type: subsequent encounter Trigger finger, left ring finger M65.342
== END 2023-07-31 13:47 | disposition home or self-care (01) ==
PROVIDERS: PCP Internal Medicine; Visit Provider Physician Assistant
DX: S63.27 Dislocation of unspecified interphalangeal joint of finger (principal); M18.12 Unilateral primary osteoarthritis of first carpometacarpal joint, left hand; M65.342 Trigger finger, left ring finger
CPT/HCPCS: 99024

== ENCOUNTER → 2023-07-31 13:28 | Outpatient (BNVA) | payer OTHER, SELFPAY | PROVIDERS: PCP Internal Medicine; Visit Provider Physician Assistant ==

== ENCOUNTER 2023-08-28 07:54 | Outpatient (REF) | payer OTHER, SELFPAY ==
[2023-08-28 08:32] LABS: MANUAL DIFF FLAG NO
[2023-08-28 10:16] LABS: Basophils Percent Auto 0.4 % (0-2); Eosinophils Absolute Auto 0.1 X10*3/uL (0.0-0.4); Eosinophils Percent Auto 0.6 % (0-4); Hematocrit 46.3 % (42.0-52.0); Hemoglobin 15.8 g/dl (14.0-18.0); Imm Gran Abs Auto 0.05 X10*3/uL (0.00-0.03); Imm Gran Pct Auto 0.5 % (0.0-0.4); Lymphocytes Absolute Auto 1.5 X10*3/uL (1.2-4.9); Lymphocytes Percent Auto 15.9 % (20-40); Mean Corpuscular HGB Conc 34.1 g/dl (31.0-36.0); Mean Corpuscular Hemoglobin 32.5 pg (27.0-33.0); Mean Corpuscular Volume 95.3 fL (80.0-98.0); Mean Platelet Volume 10.2 fL (9.4-12.4); Monocytes Absolute Auto 0.7 X10*3/uL (0.1-1.2); Monocytes Percent Auto 6.8 % (2-11); Neutrophils Absolute Auto 7.4 x10*3/uL (2.0-8.3); Neutrophils Percent Auto 75.8 % (45-73); Platelet Count 375 X10*3/uL (160-400); Red Blood Count 4.86 X10*6/uL (4.60-5.80); Red Cell Distribution Width 12.1 % (11.0-16.0); White Blood Count 9.7 X10*3/uL (4.8-10.8)
[2023-08-28 10:54] LABS: Alanine Aminotransferase 29 U/L (0-40); Albumin Level 4.8 g/dL (3.5-5.0); Alkaline Phosphatase 68 U/L (39-117); Anion Gap 13 (12-20); Aspartate Amino Transferase 19 U/L (5-37); Bilirubin Total 0.8 mg/dL (0.0-1.0); Blood Urea Nitrogen 9 mg/dL (9-16); Calcium 10.1 mg/dL (8.4-10.2); Carbon Dioxide 29 mmol/L (22-29); Chloride 99 mmol/L (96-108); Cholesterol 229 mg/dL (<200); Estimated Glomerular Filt Rate > 60; Glucose Random 104 mg/dL (60-115); HDL Cholesterol 67 mg/dL (>40); LDL Cholesterol Calculated 133 mg/dL (<100); Potassium 4.1 mmol/L (3.3-5.1); Sodium 137 mmol/L (135-145); Total Protein 8.3 g/dL (6.5-8.0); Triglycerides 149 mg/dL (<150)
[2023-08-28 11:09] LABS: Prostate Specific Antigen Scr 2.51 ng/mL (<0.05-4.0)
[2023-08-28 12:15] LABS: Creatinine Urine 108.83 mg/dL; Microalbum/Creatinine Ratio Ur 11.9 ug/mg cr (<30)
== END 2023-08-28 07:55 | disposition home or self-care (01) ==
LOC: HO.LAB 07:54
PROVIDERS: PCP Internal Medicine; Visit Provider Internal Medicine
DX: Z00.00 Encounter for general adult medical examination without abnormal findings (principal); I10 Essential (primary) hypertension; E78.2 Mixed hyperlipidemia; Z12.5 Encounter for screening for malignant neoplasm of prostate
CPT/HCPCS: 36415; 80053; 80061; 82043; 82570; 84153; 85025

== ENCOUNTER 2023-09-16 14:00 | Outpatient (RCR) | payer OTHER, SELFPAY ==
--- NOTE | 2023-07-24 13:41 | MHC.OT.EP ---
[address] [phone] Occupational Therapy Plan of Care Patient Name: Jeremias Benavides Date of Evaluation: 07/24/23 Diagnosis: Left basal joint irving trapeziectomy w/ LRTI Left D4 trigger finger release Pain Location: Base of L thumb Pain Score: 5 Pain Scale Used: Numeric (0 - 10) Aggravating Factors: Sweeping, chores it gets sore when its moved around. I am active and even walking aggravates it Alleviating Factors: Percocet and Ibuprofen Assessment: Pt presents one month post op for Left basal joint irving trapeziectomy and Left D4 trigger finger release. He presented with bandages after K wire removal yesterday 07/23/23. 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 He states he currently has difficulties completing outside chores such as raking and self care tasks such as clothing management, he has been avoiding use of left hand. Upon assessment, surgical incision is healed with no open areas or redness. He has mild edema in hand and some tightness with ring finger ROM, but overall doing well. We have fit with thumb spica for protection of repair and educated on simple thumb ROM exercises. We will continue OT services with progression of protocol to address pain, scar tissue mobilization, thumb and wrist ROM and ADL and IADL training. Frequency and Duration: The patient will be seen 2x/wk for 6 wks Short Term Goals: Reduce edema and swelling in hand Ind w/ HEP Ind w/ thumb spica use Ind w/ scar tissue management Increase thumb ROM and opposition Wrist ROM >50/50 Political Analyst Goals: Pain free with light ADL and homemaking tasks QuickDash score <30 Pt to demo AROM of thumb within functional limits Wrist AROM WFL Progress to thumb strengthening exercises Pt to demo thumb opp to base on small finger w/ ease Good use of left thumb/digits w/ daily prehensile tasks Treatment Plan: Therapeutic Exercise Therapeutic Activity Home Exercise Program Splinting Patient Education Desensitization/Sensory Re-ed Edema Control ADL Training Ultrasound Paraffin Fluidotherapy MHP Cold Packs Joint Mobilization Soft Tissue Mobilization Kinesiotaping Electronically Signed By: Keyonna Wong OT/s Please Sign and return to therapist. Thank you once again for your referral.
--- NOTE | 2023-09-16 14:28 | MHC.OT.DC ---
[address] [phone] F: [phone] Occupational Therapy Discharge Note Patient Name: Jeremias Heather RamirezMakayla Provider: Cynthia Dove Diagnosis: Left basal joint irving trapeziectomy Left D4 trigger finger release Date of Surgery: 06/24/23 Date of Evaluation: 07/24/23 Date of Discharge: 09/16/23 Treatments to Date: 14 Discharge Status: Achieved Goals Improved Function Independent with HEP Discharge Summary: 12 WEEKS POST OP. Pt HAS MET STGs/LTGs, HAS PROGRESSED TO THUMB STRENGTHENING AND WORK CONDITIONING TASKS. SCAR WELL HEALED, NO SENSITIVITIES. QUICK DASH SCORE 5% WITH MILD DIFFICULTIES OPENING TIGHT/ NEW JARS. NO FURTHER OT SERVICES WARRANTED AT THIS TIME. HAS F/U WITH [facility] TOMORROW 09/17/23. D/C OT SERVICES. Electronically Signed By: KOLBY MASTERSON OTR/L Reviewed/agree with student documentation: N/A Therapist: Please Sign and return to therapist, thank you for your referral.
== END 2023-09-16 14:35 | disposition home or self-care (01) ==
LOC: HO.OT 14:00
PROVIDERS: PCP Internal Medicine; Visit Provider Orthopaedic Surgery
DX: S63.275A Dislocation of unspecified interphalangeal joint of left ring finger, initial encounter (principal); M18.12 Unilateral primary osteoarthritis of first carpometacarpal joint, left hand; M20.032 Swan-neck deformity of left finger(s)
CPT/HCPCS: 29130; 97035; 97110; 97140; 97165; 97530; 97760

== ENCOUNTER 2023-09-17 08:33 | Outpatient (AMB) | payer OTHER, SELFPAY ==
--- NOTE | 2023-09-17 08:38 | MHC.OFFVIS ---
Intake Vital Signs 09/17/23 08:47 Height 5 ft 7 in Weight 160 lb BMI 25.1 Intake Visit Reasons: OV-Lt RF Trigger Release-ROM check Intake Note: Jeremias a 58 year old male presents today for a post operative ROM check s/p left ring finger trigger release & left basal arthroplasty, DOS 06/24/23. Patient reports he is doing well, states his ROM has improved. He has no concerns and would like to discuss return to work. 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 He says he is doing well overall, without any pain. He is very happy with the results of his surgery He tried to return to work on light duty on 09/09/23, but was not allowed to work on light duty. He would like to return to full duty this week [facility] Medical History (Updated 07/31/23 @ 14:25 by Dacia Renner PA-C) GERD (gastroesophageal reflux disease) High cholesterol High blood pressure Surgical History Hx of colonoscopy Hx of inguinal hernia repair S/P left knee arthroscopy Hx of appendectomy Social History Are you a primary patient care manager to a significant other at home: No Do you presently have visiting nurse or other home services: No Patient Tobacco Use Status: Never used Tobacco Current occupational status: employed Current occupation: storage room/maintenance/ rt hand Review of Systems Const All systems reviewed & are unremarkable except as noted in HPI and below Physical Exam Vital Signs: BMI result Body Mass Index 25.1 Const General: no acute distress and alert Orientation/consciousness: patient oriented x3 Neuro General: patient oriented x3 Extrem Other: Evaluation of Left Upper Extremity: The patient is alert, oriented, and in no acute distress Neuro: Median, Ulnar, Radial nerves motor and sensory intact and sensation is normal to the tips of all digits Vascular: Cap refill brisk ROM: His surgical site is well healed with no swelling or erythema. He can make a fist and extend all his digits He can oppose his thumb to the tips of all digits, and the base of his thumb He can pinch against these fingers without pain Smooth & painless wrist ROM Psych Appearance: grossly normal Affect: normal affect Attitude: cooperative Assessment & Plan Assessment & Plan (1) Arthritis of carpometacarpal (CMC) joint of left thumb: Code(s): M18.12 - Unilateral primary osteoarthritis of first carpometacarpal joint, left hand (2) Dislocation of interphalangeal joint of left ring finger: Code(s): S63.275A - Dislocation of unspecified interphalangeal joint of left ring finger, initial encounter Qualifiers: Encounter type: subsequent encounter Qualified Code(s): S63.275D - Dislocation of unspecified interphalangeal joint of left ring finger, subsequent encounter (3) Trigger finger, left ring finger: Code(s): M65.342 - Trigger finger, left ring finger Plan Assessment and plan: 1. Left basal joint osteoarthritis, S/P BJA with hemitrapeziectomy and LRTI DOS: 06/24/23 2. Left ring finger trigger finger, S/P release DOS: 06/24/23 K-wire removed: 07/23/23 The patient appears to be doing well post-operatively, and is very happy with the results of his surgery He no longer has any locking or catching, and no pain with use of his thumb I discussed activity modifications, he is able to use his hand for regular activities, without restrictions He will continue to work on ROM exercises at home He returned to work on light duty as of 09/09/23, and feels this is going well He was given a note to return to full duty, without restrictions, tomorrow (09/17/23) He will follow up prn. 3. Left ring finger PIP joint instability, mild swan-neck This is a chronic injury I again discussed the use of silver ring splints. He will let me know if he wants to try this. It is possible that he may benefit from an operative procedure securing a slip of FDS proximally to prevent the PIP joint from full extension. He will continue to work on ROM exercises at home Scribed for Cynthia Dove MD by Mark Linda, clinical medical transcriptionist, on 09/17/23 at 9:05 AM, EST. Coding Level of Care Code Est Pt Level 3 (72999) Diagnoses Arthritis of carpometacarpal (CMC) joint of left thumb M18.12 Dislocation of interphalangeal joint of left ring finger, subsequent encounter S63.275D Encounter type: subsequent encounter Trigger finger, left ring finger M65.342
[2023-09-17 08:47] VITALS: BMI 25.1
== END 2023-09-17 09:11 | disposition home or self-care (01) ==
PROVIDERS: PCP Internal Medicine; Visit Provider Orthopaedic Surgery
DX: M18.12 Unilateral primary osteoarthritis of first carpometacarpal joint, left hand (principal); S63.27 Dislocation of unspecified interphalangeal joint of finger; M65.342 Trigger finger, left ring finger
CPT/HCPCS: 99024

== ENCOUNTER → 2023-09-17 08:33 | Outpatient (BNVA) | payer OTHER, SELFPAY | PROVIDERS: PCP Internal Medicine; Visit Provider Orthopaedic Surgery ==

== ENCOUNTER 2024-02-20 14:15 | Outpatient (REF) | payer OTHER, SELFPAY ==
--- NOTE | ~2024-02-20 | US_ITS ---
EXAMINATION: US CHEST CLINICAL INFORMATION: Palpable mass of midline back. COMPARISON: None available. TECHNIQUE: Using a linear array transducer with grayscale and color modalities, ultrasound examination is performed of the soft tissues of the midline back, with particular attention directed towards the palpable abnormality at that location. FINDINGS: The cutaneous, subcutaneous, muscular and fascial planes are unremarkable. Correspond with the palpable finding, a 1.9 x 0.5 x 2.1 cm heterogeneous echotexture, circumscribed mass is seen. This shows no associated color Doppler flow and slight increase in through sound transmission. No cyst is seen. There is no lymphadenopathy. No foreign body is seen. US/US chest IMPRESSION: Corresponding with the palpable finding in the midline back, a 2.1 cm in maximal diameter subcutaneous mass is seen. The possibility of a lipoma is raised; the exact etiology is indeterminate. If of continued clinical concern, this can be further evaluated with MRI.
== END 2024-02-20 14:16 | disposition home or self-care (01) ==
LOC: HO.US 14:15
PROVIDERS: PCP Internal Medicine; Visit Provider Internal Medicine
DX: R22.2 Localized swelling, mass and lump, trunk (principal)
CPT/HCPCS: 76604

== ENCOUNTER 2024-04-08 07:47 | Outpatient (REF) | payer OTHER, SELFPAY ==
--- NOTE | ~2024-04-08 | MR_ITS ---
EXAMINATION: MR THORACIC SPINE WITHOUT AND WITH CONTRAST CLINICAL INFORMATION: Thoracic subcutaneous mass lesion, palpable lump in mid back COMPARISON: Ultrasound examination of midline back on 02/20/2024 TECHNIQUE: MRI of the thoracic spine was obtained using routine sequences with and without contrast. Intravenous contrast: Gadavist 7.5 mL. FINDINGS: At T9 level, directly beneath the bright signal marker localizing the site of palpable lump, a relatively encapsulated nonenhancing fat lobule is seen in the midline, between bilateral trapezius muscles, measuring 0.6 cm in AP diameter, 1.9 cm in width, 1.7 cm in vertical height. The visualized thoracic vertebrae are intact with normal alignment. No focal bone lesion with abnormal signal can be seen. Mild posterior T7-T8 and T9-T10 disc protrusions are seen. No significant central thoracic spinal stenosis is found. The visualized bilateral thoracic neural foramina are patent. Bilateral apophyseal joints are intact with normal alignment. Thoracic spinal cord is normal in position and signal. Post contrast images show no abnormal enhancing thoracic spine bone lesion. No intra spinal canalicular enhancing soft tissue mass lesion can be seen. MR/MR thoracic spine wo/w con IMPRESSION: 1. At T9 level, directly beneath the bright signal marker localizing the site of palpable lump, a relatively encapsulated nonenhancing fat lobule is seen in the midline, between bilateral trapezius muscles, may represent a small lipoma. 2. Mild posterior T7-T8 and T9-T10 disc protrusions are seen. 3. No significant central thoracic spinal stenosis or neural foraminal narrowing is seen. 4. No abnormal enhancing thoracic spine bone lesion or intra spinal canalicular enhancing soft tissue mass lesion can be seen.
[2024-04-08] MEDS: gadobutroL 7.5 ML VIAL IVPUSH (09:08)
== END 2024-04-08 07:48 | disposition home or self-care (01) ==
LOC: HO.MRI 07:47
PROVIDERS: PCP Internal Medicine; Visit Provider Internal Medicine
DX: R22.2 Localized swelling, mass and lump, trunk (principal)
CPT/HCPCS: 72157; A9585

== ENCOUNTER 2024-07-01 13:18 | Outpatient (AMB) | payer OTHER, SELFPAY ==
--- NOTE | 2024-07-01 13:26 | MHC.OFFVIS ---
Vital Signs 07/01/24 13:28 Height 5 ft 7 in Weight 160 lb BMI 25.1 Handedness Right Intake Visit Reasons: New prob- Left elbow inj request Intake Note: Jeremias is a 58 year old right hand dominant male who presents today for a new problem visit with complaints of left elbow pain. Hx of surgery in his right elbow on 2014. He states that his pain is ongoing for about a year. Patient is looking to get an injection in her left elbow. Allergies erythromycin base Allergy (Severe, Verified 07/01/24 13:29) Hives, rash Medication List - Last Reconciled 07/01/24 by Dacia Renner PA-C amlodipine-atorvastatin 10-20 mg 1 tab PO DAILY amoxicillin-pot clavulanate 875-125 mg 1 tab PO Q12H ibuprofen 600 mg PO Q6-8H PRN lisinopril-hydrochlorothiazide 10-12.5 mg 1 tab PO DAILY omeprazole 20 mg PO DAILY HPI HPI New prob- Left elbow inj request: Details: The patient is a 58-year-old male who returns to the office today for left elbow pain. He has pain since about a year and previously underwent surgery in the right elbow back in 2015 for similar symptoms. He has pain in the left elbow with repetitive lifting and twisting motions. He denies numbness or tingling in the wrist or fingers. [facility] Medical History (Updated 07/01/24 @ 21:14 by Dacia Renner PA-C) GERD (gastroesophageal reflux disease) High cholesterol High blood pressure Surgical History Hx of colonoscopy Hx of inguinal hernia repair S/P left knee arthroscopy Hx of appendectomy Social History Are you a primary career advisor to a significant other at home: No Do you presently have visiting nurse or other home services: No Patient Tobacco Use Status: Never used Tobacco Current occupational status: employed Current occupation: storage room/maintenance/ rt hand Review of Systems Const All systems reviewed & are unremarkable except as noted in HPI and below Physical Exam Vital Signs: BMI result Body Mass Index 25.1 Extrem Other: Left elbow: Skin intact. No erythema or swelling. ROM full without pain. Tenderness over the lateral epicondyle and pain with resisted wrist extension. NVI. Office Procedures Joint Injection/Aspiration Joint Injection/Aspiration Primary Site: left tennis elbow Prep: site was prepped using aseptic technique, ethochloride spray was applied and injection warnings given Injected: 40 mg of, 1% plain lidocaine and decadron Procedure: The patient tolerated the procedure well and there was some relief with the local anesthesia Coding 18985 - Epicondyle Procedure code (CPT) selection complete Assessment & Plan Assessment & Plan (1) Left lateral epicondylitis: Code(s): M77.12 - Lateral epicondylitis, left elbow Category: Medical Plan We discussed options today, which include steroid injection. The patient did consent to move forward with the injection, which was tolerated well. I recommended rest, ice, and elevation and OTC anti-inflammatories as needed for discomfort. If symptoms persist over the next 6-8 weeks, they will contact the office, otherwise as needed. He was also referred to physical therapy. Scribed for Dacia Renner PA-C, by Cecilia Lomax medical assistant dermatology, on 07/01/2024 at 13:30 AM MICHEAL. Dacia Ridley PA-C, have personally reviewed and agree with the information entered by the scribe. Coding Level of Care Code Est Pt Level 3 (49479) Complex EM visit Add On G2211 Diagnoses Left lateral epicondylitis M77.12 CPT Codes Coding - Joint 2: 33639 - Epicondyle ([id number])
[2024-07-01 13:28] VITALS: BMI 25.1
== END 2024-07-01 21:16 | disposition home or self-care (01) ==
PROVIDERS: PCP Internal Medicine; Visit Provider Physician Assistant
DX: M77.12 Lateral epicondylitis, left elbow (principal)
CPT/HCPCS: 20550; 99213

== ENCOUNTER → 2024-07-01 13:18 | Outpatient (BNVA) | payer OTHER, SELFPAY | PROVIDERS: PCP Internal Medicine; Visit Provider Physician Assistant | DX: M77.12 Lateral epicondylitis, left elbow (principal) | CPT/HCPCS: 20550; J1100 ==

== ENCOUNTER 2024-09-08 06:54 | Outpatient (REF) | payer OTHER, SELFPAY ==
[2024-09-08 07:14] LABS: MANUAL DIFF FLAG NO
[2024-09-08 07:41] LABS: Basophils Percent Auto 0.4 % (0-2); Eosinophils Absolute Auto 0.1 X10*3/uL (0.0-0.4); Eosinophils Percent Auto 0.9 % (0-4); Hematocrit 43.3 % (42.0-52.0); Hemoglobin 15.2 g/dl (14.0-18.0); Imm Gran Abs Auto 0.03 X10*3/uL (0.00-0.03); Imm Gran Pct Auto 0.4 % (0.0-0.4); Lymphocytes Absolute Auto 1.4 X10*3/uL (1.2-4.9); Lymphocytes Percent Auto 19.9 % (20-40); Mean Corpuscular HGB Conc 35.1 g/dl (31.0-36.0); Mean Corpuscular Hemoglobin 32.7 pg (27.0-33.0); Mean Corpuscular Volume 93.1 fL (80.0-98.0); Mean Platelet Volume 9.4 fL (9.4-12.4); Monocytes Absolute Auto 0.5 X10*3/uL (0.1-1.2); Monocytes Percent Auto 7.8 % (2-11); Neutrophils Absolute Auto 4.8 x10*3/uL (2.0-8.3); Neutrophils Percent Auto 70.6 % (45-73); Platelet Count 315 X10*3/uL (160-400); Red Blood Count 4.65 X10*6/uL (4.60-5.80); White Blood Count 6.8 X10*3/uL (4.8-10.8)
[2024-09-08 08:04] LABS: Alanine Aminotransferase 40 U/L (0-40); Albumin Level 4.5 g/dL (3.5-5.0); Alkaline Phosphatase 55 U/L (39-117); Anion Gap 13 (12-20); Aspartate Amino Transferase 28 U/L (5-37); Bilirubin Total 0.6 mg/dL (0.0-1.0); Blood Urea Nitrogen 11 mg/dL (9-16); Calcium 9.7 mg/dL (8.4-10.2); Carbon Dioxide 26 mmol/L (22-29); Chloride 98 mmol/L (96-108); Cholesterol 209 mg/dL (<200); Estimated Glomerular Filt Rate > 60; Glucose Random 99 mg/dL (60-115); HDL Cholesterol 65 mg/dL (>40); LDL Cholesterol Calculated 130 mg/dL (<100); Potassium 4.1 mmol/L (3.3-5.1); Sodium 133 mmol/L (135-145); Total Protein 7.4 g/dL (6.5-8.0); Triglycerides 72 mg/dL (<150)
[2024-09-08 08:04] LABS: Creatinine Urine 123.83 mg/dL; Microalbum/Creatinine Ratio Ur 12.9 ug/mg cr (<30)
[2024-09-08 08:25] LABS: Prostate Specific Antigen 0.65 ng/mL (<0.05-4.0)
== END 2024-09-08 06:55 | disposition home or self-care (01) ==
LOC: HO.LAB 06:54
PROVIDERS: PCP Internal Medicine; Visit Provider Internal Medicine
DX: Z00.00 Encounter for general adult medical examination without abnormal findings (principal); I10 Essential (primary) hypertension; E78.2 Mixed hyperlipidemia; Z12.5 Encounter for screening for malignant neoplasm of prostate
CPT/HCPCS: 36415; 80053; 80061; 82043; 82570; 84153; 85025

== ENCOUNTER 2025-09-13 06:31 | Outpatient (REF) | payer OTHER, SELFPAY ==
--- OUTSIDE RECORDS SUMMARY | 2024-05-05 15:35 | XMS_ITS ---
Author Organization [facility] Address [address] [place] [address] Care Team Providers Care Shift Engineer Name Role Phone KATARZYNA ERVIN Primary Care Provider [phone] REASON FOR VISIT MRI Encounters Encounter Location Date Provider Diagnosis [address] [address] 05/05/2024 KATARZYNA ERVIN PLAN OF TREATMENT Next Appt Details Provider Name:KATARZYNA ERVIN , 02/14/2026 02:30:00 PM, [address] [place] [address], [phone], Provider Name:KATARZYNA ERVIN , 09/05/2026 01:30:00 PM, [address] [place] [address], [phone],
--- OUTSIDE RECORDS SUMMARY | 2024-08-24 08:30 | XMS_ITS ---
Author Organization [facility] Address [address] [place] [address] Care Team Providers Care Tire Setter Name Role Phone AZIZAKATARZYNA LYLE Primary Care Provider [phone] ALLERGIES Allergen (clinical drug ingredient) Drug/Non Drug Allergy documented on EMR Reaction Allergy Type Onset Date Status clarithromycin Clarithromycin Biaxin Drug Allergy 009 Active erythromycin Erythromycin Base Erythromycin Drug Allergy 12/2008 Active REASON FOR VISIT 41 CPX, declined flu vaccine MEDICATIONS Medication SIG (Take, Route, Frequency, Duration) Notes Start Date End Date Status Lisinopril-hydroCHLOROthia zide 10-12.5 MG 1 tablet Orally Once a day Active amLODIPine-Atorvastatin 10-20 MG 1 tablet Orally Once a day A ctive Omeprazole 20 MG 1 capsule 30 minutes before morning meal Orally Once a day Active Econazole Nitrate 1 % 1 application Exte rnally Once a day for 30 day(s) 02/18/2024 Active VITAL SIGNS Height 67.00 in 08/24/2024 Weight 163 lbs 08/24/2024 Blood pressure systolic 137 mm Hg 08/24/20 24 Blood pressure diastolic 82 mm Hg 024 BMI 25.53 kg/m2 08/24/2024 Encounters Encounter Location Date Provider Diagnosis [facility] [address] [place] [address] 08/24/2024 KATARZYNA ERVIN Encounter for genera l adult medical examination without abnormal findings Z00.00 ; Essential (primary) hypertension I10 ; Mixed hyperlipidemia E78.2 and Left lateral epicondylitis M77.12 ASSESSMENTS Encounter Date Diagnosis Assessment Notes Treatment Notes Treatment Clinical Notes Section Notes 08/24/2024 Encounter for general adult medical examination without abnormal findings (ICD-10 - Z00.00) 1. Routine healthcare maintenance: Colonoscopy was done in 2019 and is next due in 2028. He will update fasting blood work. He had his flu shot. 2. Hypertension: Mildly elevated today. Will recheck in 6 weeks prior to adjusting therapy 3. Hyperlipidemia : We will update profile on atorvastatin 4. Left lateral epicondylitis. Will trial Voltaren gel to see if this quiets his symptoms 08/24/2024 Essential (primary) hypertension (ICD-10 - I10) 1. Routine healthcare maintenance: Colonoscopy was done in 2019 and is next due in 2028. He will update fasting blood work. He had his flu shot. 2. Hypertension: Mildly elevated today. Will recheck in 6 weeks prior to adjusting therapy 3. Hyperlipidemia : We will update profile on atorvastatin 4. Left lateral epicondylitis. Will trial Voltaren gel to see if this quiets his symptoms 08/24/2024 Mixed hyperlipidemia (ICD-10 - E78.2) 1. Routine healthcare maintenance: Colonoscopy was done in 2019 and is next due in 2028. He will update fasting blood work. He had his flu shot. 2. Hypertension: Mildly elevated today. Will recheck in 6 weeks prior to adjusting therapy 3. Hyperlipidemia : We will update profile on atorvastatin 4. Left lateral epicondylitis. Will trial Voltaren gel to see if this quiets his symptoms 08/24/2024 Left lateral epicondylitis (ICD-10 - M77.12) 1. Routine healthcare maintenance: Colonoscopy was done in 2019 and is next due in 2028. He will update fasting blood work. He had his flu shot. 2. Hypertension: Mildly elevated today. Will recheck in 6 weeks prior to adjusting therapy 3. Hyperlipidemia : We will update profile on atorvastatin 4. Left lateral epicondylitis. Will trial Voltaren gel to see if this quiets his symptoms PLAN OF TREATMENT Medication Medication Name Sig Start Date Stop Date Notes Lisinopril-hydroCHLOROthiazi de 10-12.5 MG 1 tablet Orally Once a day amLODIPine-Atorvastatin 10-2 0 MG 1 tablet Orally Once a day Future Test Test Name Order Date Prostate-Specific Ag (PSA)-[id number] 2023 CBC, Platelet, w/o [id number] 10/24/2023 Albumin/Creatinine Ratio,[id number] Lipid Panel-[id number] 08/24/2024 Comp. Metabolic Panel [id number] 2023 Next Appt Details Provider Name:KATARZYNA ERVIN , 02/14/2026 02:30:00 PM, [address] [place] [address], [place], [phone], Provider Name:KATARZYNA EVRIN , 09/05/2026 01:30:00 PM, [address] [facility], [place], [phone], Progress Notes * Examination Category Sub-Category Detail Notes Category Not es General Examination HEENT: PERRLA, EOMI bilaterally, nose clear, oropharynx clear, no TM's normal, scleral icterus, , Normocephalic/atraumatic Neck: no lymphadenopathy, no thyroid abnormality, no bruit, normal ROM of C spine Heart: RRR, normal S1S2, no murmurs, clicks or rubs Lungs: clear to auscultatio n, no crackles, , no wheezes Abdomen: soft, non tender/non distended, no rebound tenderness, no guarding or rigidity, no masses palpated Extremities: no edema General Appearance no apparent distress Skin: no rash Neuro alert and oriented x 3, CN 2-12 intact, no focal moror abnormality, no tremor Peripheral pulses: bilaterally symetric al dorsalis pedis, posterior tibial, radial and Carotids Back: no spinal tenderness Rectal prostate mildly enla rged Lymphatics No nodes in neck Psych: affect normal History and Physical Notes * HPI (History of Present Illness) Category Sub-Category Detail Notes Category Not es General Patient with on going left elbow pain - related to tennis elbow - had injection - without effect
--- OUTSIDE RECORDS SUMMARY | 2024-09-09 11:33 | XMS_ITS ---
Author Organization [facility] Address [address] [place] [address] Care Team Providers Care Rug Sample Beveler Name Role Phone KATARZYNA ERVIN Primary Care Provider REASON FOR VISIT labs Encounters Encounter Location Date Provider Diagnosis [address] [address] 09/09/2024 KATARZYNA ERVIN PLAN OF TREATMENT Next Appt Details Provider Name:KATARZYNA ERVIN , 02/14/2026 02:30:00 PM, [address] [place] [address], [phone], Provider Name:KATARZYNA ERVIN , 09/05/2026 01:30:00 PM, [address] [place] [address], [phone],
--- OUTSIDE RECORDS SUMMARY | 2024-10-05 08:00 | XMS_ITS ---
Author Organization [facility] Address [address] [place] [address] Care Team Providers Care Winery Cellar Hand Name Role Phone KATARZYNA ERVIN Primary Care Provider [phone] ALLERGIES Allergen (clinical drug ingredient) Drug/Non Drug Allergy documented on EMR Reaction Allergy Type Onset Date Status clarithromycin Clarithromycin Biaxin Drug Allergy 009 Active erythromycin Erythromycin Base Erythromycin Drug Allergy 12/2008 Active REASON FOR VISIT 41/ 6w MEDICATIONS Medication SIG (Take, Route, Frequency, Duration) Notes Start Date End Date Status Lisinopril-hydroCHLOROthia zide 10-12.5 MG TAKE 1 TABLET BY MOUTH ONCE DAILY DIRECTED Active Econazole Nitrate 1 % 1 application Exte rnally Once a day for 30 day(s) 02/18/2024 Active amLODIPine-Atorvastatin 10-20 MG TAKE ONE (1) TABLET BY MOUTH ONCE EVERY DAY Active Omeprazole 20 MG TAKE 1 CAPSULE BY [facility] ONCE DAILY BEFORE A MEAL for 90 Active SOCIAL HISTORY Tobacco Use: Social History Observation Description Date Details (start date - stop date) Never Smoker NA - NA Sex Assigned At : Social History Observation Description Sex Assigned At Unknown Smoking Question Answer Notes Are you a: never smoker VITAL SIGNS Height 67.00 in 10/05/2024 Weight 164 lbs 10/05/2024 Blood pressure systolic 118 mm Hg 10/05/20 24 Blood pressure diastolic 62 mm Hg 024 BMI 25.68 kg/m2 10/05/2024 Encounters Encounter Location Date Provider Diagnosis [facility] [address] [place] [address] 10/05/2024 KATARZYNA ERVIN Essential (primary) hypertension I10 and Mixed hyperlipidemia E78.2 ASSESSMENTS Encounter Date Diagnosis Assessment Notes Treatment Notes Treatment Clinical Notes Section Notes 10/05/2024 Essential (primary) hypertension (ICD-10 - I10) 1. Hypertension: Back in line today. Will maintain present medication regimen with no changes today. 2. Hyperlipidemia : Well-controlle d on present atorvastatin. Will continue same 10/05/2024 Mixed hyperlipidemia (ICD-10 - E78.2) 1. Hypertension: Back in line today. Will maintain present medication regimen with no changes today. 2. Hyperlipidemia : Well-controlle d on present atorvastatin. Will continue same PLAN OF TREATMENT Medication Medication Name Sig Start Date Stop Date Notes Lisinopril-hydroCHLOROthiazi de 10-12.5 MG TAKE 1 TABLET BY MOUTH ONCE DAILY DIRECTED amLODIPine-Atorvastatin 10-2 0 MG TAKE ONE (1) TABLET BY MOUTH ONCE EVERY DAY Next Appt Details Provider Name:KATARZYNA ERVIN , 02/14/2026 02:30:00 PM, [address] [place] [address], [phone], Provider Name:KATARZYNA ERVIN , 09/05/2026 01:30:00 PM, [address] [place] [address], [phone], Progress Notes * Examination Category Sub-Category Detail Notes Category Not es General Examination Heart: RSR, normal S1S2 Lungs: clear to auscultatio n Extremities: no edema General Appearance no apparent distress , pleasant Psych: alert, oriented X 3 Other normal affect
--- OUTSIDE RECORDS SUMMARY | 2025-08-31 08:00 | XMS_ITS ---
Author Organization [facility] Address [address] [place] [address] Care Team Providers Care Healthcare Financial Analyst Name Role Phone KATARZYNA ERVIN Primary Care Provider ALLERGIES Allergen (clinical drug ingredient) Drug/Non Drug Allergy documented on EMR Reaction Allergy Type Onset Date Status clarithromycin Clarithromycin Biaxin Drug Allergy 009 Active erythromycin Erythromycin Base Erythromycin Drug Allergy 12/2008 Active REASON FOR VISIT CPX MEDICATIONS Medication SIG (Take, Route, Frequency, Duration) Notes Start Date End Date Status amLODIPine-Atorvastatin 10-20 MG TAKE ONE (1) TABLET BY MOUTH EVERY DAY Active Econazole Nitrate 1 % 1 application Exte rnally Once a day for 30 day(s) 02/18/2024 Active Anusol-HC 2.5 % 1 application Other Sales Support Worker ally Twice a day for 7 days 08/31/2025 Active Omeprazole 20 MG TAKE ONE (1) CAPSULE BY MOUTH ONCE EVERY DAY BEFORE A MEAL for 90 Active Lisinopril-hydroCHLOROthia zide 10-12.5 MG TAKE ONE (1) TABLET BY MOUTH ONCE EVERY DAY DIRECTED Active SOCIAL HISTORY Tobacco Use: Social History Observation Description Date Details (start date - stop date) Never Smoker NA - NA Sex Assigned At : Social History Observation Description Sex Assigned At Unknown Smoking Question Answer Notes Are you a: never smoker PROBLEMS Problem Type ICD Code Onset Dates Problem Status W/U Status Risk SNOMED Code Notes Problem External hemorrhoid (K64.4) Active confirmed 61277584 VITAL SIGNS Height 67.00 in 08/31/2025 Weight 161.2 lbs 08/31/2025 Blood pressure systolic 126 mm Hg 08/31/20 25 Blood pressure diastolic 76 mm Hg 025 BMI 25.24 kg/m2 08/31/2025 Encounters Encounter Location Date Provider Diagnosis [facility] [address] [place] [address] 08/31/2025 [facility] Encounter for genera l adult medical examination without abnormal findings Z00.00 ; Essential (primary) hypertension I10 ; Mixed hyperlipidemia E78.2 ; Other fatigue R53.83 and External hemorrhoid K64.4 ASSESSMENTS Encounter Date Diagnosis Assessment Notes Treatment Notes Treatment Clinical Notes Section Notes 08/31/2025 Encounter for general adult medical examination without abnormal findings (ICD-10 - Z00.00) 1. Routine healthcare maintenance: Colonoscopy is due in 2028. He will update fasting blood work 2. Hypertension: Stable on current lisinopril/hydr ochlorothiazide and amlodipine. Continue same 3. Hyperlipidemia: Will update profile on atorvastatin 4. Fatigue: Will check testosterone along with blood work 5. External hemorrhoid: Will use topical Anusol cream twice a day for 1 week 08/31/2025 Essential (primary) hypertension (ICD-10 - I10) 1. Routine healthcare maintenance: Colonoscopy is due in 2028. He will update fasting blood work 2. Hypertension: Stable on current lisinopril/hydr ochlorothiazide and amlodipine. Continue same 3. Hyperlipidemia: Will update profile on atorvastatin 4. Fatigue: Will check testosterone along with blood work 5. External hemorrhoid: Will use topical Anusol cream twice a day for 1 week 08/31/2025 Mixed hyperlipidemia (ICD-10 - E78.2) 1. Routine healthcare maintenance: Colonoscopy is due in 2028. He will update fasting blood work 2. Hypertension: Stable on current lisinopril/hydr ochlorothiazide and amlodipine. Continue same 3. Hyperlipidemia: Will update profile on atorvastatin 4. Fatigue: Will check testosterone along with blood work 5. External hemorrhoid: Will use topical Anusol cream twice a day for 1 week 08/31/2025 Other fatigue (ICD-10 - R53.83) 1. Routine healthcare maintenance: Colonoscopy is due in 2028. He will update fasting blood work 2. Hypertension: Stable on current lisinopril/hydr ochlorothiazide and amlodipine. Continue same 3. Hyperlipidemia: Will update profile on atorvastatin 4. Fatigue: Will check testosterone along with blood work 5. External hemorrhoid: Will use topical Anusol cream twice a day for 1 week 08/31/2025 External hemorrhoid (ICD-10 - K64.4) 1. Routine healthcare maintenance: Colonoscopy is due in 2028. He will update fasting blood work 2. Hypertension: Stable on current lisinopril/hydr ochlorothiazide and amlodipine. Continue same 3. Hyperlipidemia: Will update profile on atorvastatin 4. Fatigue: Will check testosterone along with blood work 5. External hemorrhoid: Will use topical Anusol cream twice a day for 1 week PLAN OF TREATMENT Medication Medication Name Sig Start Date Stop Date Notes amLODIPine-Atorvastatin 10-2 0 MG TAKE ONE (1) TABLET BY MOUTH EVERY DAY Anusol-HC 2.5 % 1 application Other Sales Support Worker ally Twice a day for 7 days 08/31/2025 Lisinopril-hydroCHLOROthiazi d e 10-12.5 MG TAKE ONE (1) TABLET BY MOUTH ONCE EVERY DAY DIRECTED Future Test Test Name Order Date Testosterone,Free and Total-[id number] 08/31 Prostate-Specific Ag-[id number] 08/31/2025 Lipid Panel-[id number] 08/31/2025 CBC, Platelet, No Differential-[id number] Comp. Metabolic Panel [id number] 2024 Next Appt Details Provider Name:KATARZYNA ERVIN , 02/14/2026 02:30:00 PM, [address] [place] [address], [phone], Provider Name:KATARZYNA ERVIN , 09/05/2026 01:30:00 PM, [address] [place] [address], [phone], Progress Notes * Examination Category Sub-Category Detail [...] x 3, CN 2-12 intact, no focal motor abnormality, no tremor Peripheral pulses: bilaterally symetric al dorsalis pedis, posterior tibial, radial and Carotids Back: no spinal tenderness Rectal prostate mildly enla rged, + external hemorrhoid Lymphatics No nodes in neck Psych: affect normal
--- OUTSIDE RECORDS SUMMARY | 2025-09-13 06:35 | XMS_ITS | Patient Health Record ---
Author Organization [facility] Address [address] [place] [address] Care Team Providers Care Aviation Project Manager Name Role Phone KATARZYNA ERVIN Primary Care Provider ALLERGIES Allergen (clinical drug ingredient) Drug/Non Drug Allergy documented on EMR Reaction Allergy Type Onset Date Status clarithromycin Clarithromycin Biaxin Drug Allergy 009 Active erythromycin Erythromycin Base Erythromycin Drug Allergy 12/2008 Active REASON FOR REFERRAL No Information MEDICATIONS Medication SIG (Take, Route, Frequency, Duration) Notes Start Date End Date Status amLODIPine-Atorvastatin 10-20 MG TAKE ONE (1) TABLET BY MOUTH EVERY DAY Active Econazole Nitrate 1 % 1 application Exte rnally Once a day for 30 day(s) 02/18/2024 Active Anusol-HC 2.5 % 1 application Per Diem Interpreter ally Twice a day for 7 days 08/31/2025 Active Omeprazole 20 MG TAKE ONE (1) CAPSULE BY MOUTH ONCE EVERY DAY BEFORE A MEAL for 90 Active Lisinopril-hydroCHLOROthia zide 10-12.5 MG TAKE ONE (1) TABLET BY MOUTH ONCE EVERY DAY DIRECTED Active IMMUNIZATIONS Vaccine Route Administration Date Status Comme nts MMR IM Intramuscular 06/28/2016 Administered Pfizer COVID-19,mRNA, LNP-S, PF, 30mcg/0.3mL dose Unknown 10/26/2020 Administered Td (Tetanus Diphtheria) IM Intramuscular 10/31/2010 Admini stered TDAP IM Intramuscular 08/17/2022 Administered MMR SC Subcutaneous 05/28/2016 Administered Pfizer COVID-19,mRNA, LNP-S, PF, 30mcg/0.3mL dose Unknown 10/05/2020 Administered Td (Tetanus Diphtheria) Unknown 10/15/2000 Administered SOCIAL HISTORY Tobacco Use: Social History Observation Description Date Details (start date - stop date) Never Smoker NA - NA Sex Assigned At : Social History Observation Description Sex Assigned At Unknown Smoking Question Answer Notes Are you a: never smoker PROBLEMS Problem Type ICD Code Onset Dates Problem Status W/U Status Risk SNOMED Code Notes Problem Mixed hyperlipidemia (E78.2) Active confirmed 449384850 Problem Primary osteoarthritis, left hand (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) Active confirmed 340888021929387 Problem External hemorrhoid (K64.4) Active confirmed 14316729 Problem Essential (primary) hypertension (I10) 10/16/19 10 Active confirmed Essential hypertension (54829249) Problem Sprain of ligaments of cervical spine, initial encounter (S13.4XXA) 10/16/19 10 Active confirmed Neck sprain (591019776) VITAL SIGNS Blood pressure diastolic 76 mm Hg 08/31/2025 Height 67.00 in 08/31/2025 Blood pressure systolic 126 mm Hg 08/31/2025 Weight 161.2 lbs 08/31/2025 BMI 25.24 kg/m2 08/31/2025 Encounters Encounter Location Date Provider Diagnosis [facility] [address] [place] [address] 10/05/2024 [facility] Essential (primary) hypertension I10 and Mixed hyperlipidemia E78.2 [facility] [address] [place] [address] 08/31/2025 [facility] Encounter for genera l adult medical examination [...] medication regimen with no changes today. 2. Hyperlipidemia: Well-controlled on present atorvastatin. Will continue same 10/05/2024 Mixed hyperlipidemia (ICD-10 - E78.2) 1. Hypertension: Back in line today. Will maintain present medication regimen with no changes today. 2. Hyperlipidemia: Well-controlled on present atorvastatin. Will continue same 08/31/2025 Encounter for general adult medical examination [...] day for 1 week PLAN OF TREATMENT Pending Test Test Name Order Date MRI Soft Tissue 02/28/2024 MRI Chest with and without IV contrast 0 03/02/2024 Future Test Test Name Order Date Prostate-Specific Ag (PSA)-[id number] 2023 CBC, Platelet, w/o Differential-[id number] 1 10/24/2023 Albumin/Creatinine Ratio,Urine-[id number] Lipid Panel-[id number] 08/24/2024 Comp. Metabolic Panel [id number] 2023 Testosterone,Free and Total-[id number] 08/31 Prostate-Specific Ag-[id number] 08/31/2025 Lipid Panel-[id number] 08/31/2025 CBC, Platelet, No Differential-[id number] Comp. Metabolic Panel [id number] 2024 Next Appt Details Provider Name:KATARZYNA ERVIN , 02/14/2026 02:30:00 PM, [address] [place] [address], [phone], Provider Name:KATARZYNA ERVIN , 09/05/2026 01:30:00 PM, [address] [place] [address], [phone], Insurance Providers Payer Name Payer Address Payer Phone Subscriber Number Group Number Insured Name Patient Relationship to Insured Coverage Start Date Coverage End Date [employer] [address] [address] [place] [address] [id number] BLANCA GARCIA Self - patient is the insured 3 [employer] [address] [place] [address] [id number] BLANCA GARCIA Self - patient is the insured 6 6 REPLACED BY [facility] [employer] [address] [place] [id number] BLANCA GARCIA Self - patient is the insured 6 6 [facility] [address] [facility] [place] [id number] BLANCA GARCIA Self - patient is the insured 8 MEDICAL (GENERAL) HISTORY Medical History History ICD Code Elevated lipids, hypertension, Problems: Carpal tunnel synd skylar, Added Date: 07/03/2015, Onset Date: 10/16/2009:Active Problems: Internal hemorrhoi ds, Added Date: 07/03/2015, Onset Date: 10/16/2009:Active Problems: Low back pain, Add ed Date: 07/03/2015, Onset Date: 10/16/2009:Active Problems: Mixed hyperlipidem ia, Added Date: 07/03/2015, Onset Date: 10/16/2009:Active Surgical History Surgery Date(Month/Year) Left hand arthritis - surgery hemitrapez iectomy 06/2023 Hernia, inguinal left, Sx_Procedure : He rnia repair, inguinal 2004 Disease : meniscal tear, Sx_Procedure : Arthroscopy knee Disease : hemorrhoids, Sx_Procedure : he morrhoidectomy
[2025-09-13 06:57] LABS: MANUAL DIFF FLAG NO
[2025-09-13 07:19] LABS: Hematocrit 41.2 % (42.0-52.0); Hemoglobin 14.5 g/dl (14.0-18.0); Imm Gran Abs Auto 0.03 X10*3/uL (0.00-0.03); Imm Gran Pct Auto 0.4 % (0.0-0.4); Lymphocytes Absolute Auto 1.2 X10*3/uL (1.2-4.9); Mean Corpuscular HGB Conc 35.2 g/dl (31.0-36.0); Mean Corpuscular Hemoglobin 33.1 pg (27.0-33.0); Mean Corpuscular Volume 94.1 fL (80.0-98.0); NRBC Abs Auto 0.000 X10*3/uL (0.0-0.012); NRBC Pct Auto 0.0 /100WBC (0.0-0.2); Platelet Count 301 X10*3/uL (160-400); Red Blood Count 4.38 X10*6/uL (4.60-5.80); White Blood Count 6.9 X10*3/uL (4.8-10.8)
[2025-09-13 07:50] LABS: Alanine Aminotransferase 22 U/L (0-40); Albumin Level 4.6 g/dL (3.5-5.0); Alkaline Phosphatase 55 U/L (39-117); Anion Gap 14 (12-20); Aspartate Amino Transferase 26 U/L (5-37); Blood Urea Nitrogen 14 mg/dL (9-16); Calcium 9.4 mg/dL (8.4-10.2); Carbon Dioxide 24 mmol/L (22-29); Chloride 102 mmol/L (96-108); Cholesterol 213 mg/dL (<200); Estimated Glomerular Filt Rate > 60; HDL Cholesterol 73 mg/dL (>40); Potassium 4.0 mmol/L (3.3-5.1); Sodium 136 mmol/L (135-145); Total Protein 7.4 g/dL (6.5-8.0); Triglycerides 94 mg/dL (<150)
[2025-09-13 08:07] LABS: Prostate Specific Antigen 0.55 ng/mL (<0.05-4.0)
[2025-09-17 13:48] LABS: Testosterone, Free 72.5 pg/mL (35.0-155.0)
== END 2025-09-13 06:32 | disposition home or self-care (01) ==
LOC: HO.LAB 06:31
PROVIDERS: PCP Internal Medicine; Visit Provider Internal Medicine
DX: E78.2 Mixed hyperlipidemia (principal); I10 Essential (primary) hypertension; R53.83 Other fatigue; Z12.5 Encounter for screening for malignant neoplasm of prostate
CPT/HCPCS: 36415; 80053; 80061; 84153; 84402; 84403; 85025